=== PATIENT | female | born 1985 | race Caucasian/White ===

== ENCOUNTER → 2025-01-18 | Outpatient (CLI) | payer MEDICAID, SELFPAY ==
--- NOTE | 2025-01-18 13:30 | XR_ITS ---
Examination: Breast ultrasound, unilateral, left complete Date and time of exam: January 18, 2025 1349 hours INDICATIONS: History right breast biopsy 11:00 nodule October 30, 2023, negative, bilateral breast sonography October 30, 2023 11:00 nodule right breast 8 mm, 3:00 nodule left breast 8 mm Technique: Real-time ryan scale ultrasonographic imaging performed left breast including all 4 quadrants as well as nipple retroareolar and axillary region. Findings: 3:00 nodule circumscribed 7 x 4 mm 11:00 nodule circumscribed 5 x 6 mm Retroareolar cyst 3 x 4 mm IMPRESSION: BI-RADS Category 3: Probably benign findings Recommend 1 additional 6 month left breast sonogram follow-up to document stability of nodules described above
== END | disposition home or self-care (01) ==
PROVIDERS: Referring Provider Physician Assistant; Visit Provider Physician Assistant
DX: N63.23 Unspecified lump in the left breast, lower outer quadrant (principal); N63.25 Unspecified lump in the left breast, overlapping quadrants; N63.22 Unspecified lump in the left breast, upper inner quadrant
CPT/HCPCS: 76641